=== PATIENT | male | born 1970 | race Caucasian/White ===

== ENCOUNTER 2019-08-02 07:45 | Day surgery (SDC) | payer BC ==
[~2019-08-02 07:45] MED LIST: Lactated Ringers 1,000 ML IV SCH; Sodium Chloride 0.9% 10 ML Syringe FLUSH PRN
[2019-08-02] MEDS ORDERED: Propofol 200 MG/20 ML SDV IV ONE (07:46)
[2019-08-02] MEDS ORDERED: Midazolam 1 MG/ML 2 ML SDV IV ONE (07:46)
[2019-08-02] MEDS ORDERED: Lidocaine 1% PF 2 ML SDV INJECT ONE (07:46)
--- NOTE | 2019-08-02 09:59 | PCM.OPNOTE ---
- General Post-Op/Procedure Note Date of Surgery/Procedure: 08/02/19 Operative Procedure(s): c scope Findings: normal exam Pre Op Diagnosis: colon cancer screening Post-Op Diagnosis: nl exam Anesthesia Technique: MAC Primary Surgeon: Shashi Sauer Anesthesia Provider: Kiarra Hernandez Pathology: none Complications: None Condition: Good Free Text/Narrative:: see exam
--- NOTE | 2019-08-02 14:16 | OR ---
DATE OF OPERATION: 08/02/2019 SURGEON: Shashi Sauer MD PREOPERATIVE DIAGNOSIS: Need for colon cancer screening. POSTOPERATIVE DIAGNOSIS: Normal exam. PROCEDURE PERFORMED: Screening colonoscopy. INDICATIONS FOR PROCEDURE: This is a 48-year-old white male who presents for a screening colonoscopy. DESCRIPTION OF OPERATION: After an excellent IV sedation was administered, digital rectal exam was performed. No marked abnormality was noted. Flexible colonoscope was inserted and advanced to the cecum. Colon was rather torturous, but we were able to reach the cecum with abdominal wall pressure. Prep was excellent. The following findings were noted. Ascending colon, unremarkable. Transverse colon, unremarkable. Descending colon, unremarkable. Sigmoid and rectum, unremarkable. RECOMMENDATIONS: Repeat colonoscopy in 10 years. /[id number] /MODL
== END 2019-08-02 10:55 | disposition home or self-care (01) ==
LOC: FB.SDS 07:45
PROVIDERS: ATTEND Surgery
DX: Z12.11 Encounter for screening for malignant neoplasm of colon (principal); Z88.1 Allergy status to other antibiotic agents; Z87.891 Personal history of nicotine dependence; Z79.899 Other long term (current) drug therapy; Z98.890 Other specified postprocedural states
CPT/HCPCS: 45378; J2001; J2250; J2704; J7120